=== PATIENT | male | born 1940 | race Caucasian/White ===

== ENCOUNTER 2022-12-11 07:42 | Outpatient (OUT) | payer MEDICARE, SELFPAY ==
[2022-12-11 10:40] VITALS: BP 143/91; PULSE 90; RESP 18; TEMP 36.5; O2SAT 97
[2022-12-11] MEDS: MITOMYCIN 40 MG in WATER FOR INJECTION,STERILE 20 ML 20 MG INTRAVESIC (11:00)
--- NOTE | 2022-12-11 11:00 | PC.NURSE ---
Patient is here for intravesicular mitomycin, he denies any complaints. Vitals are stable. He tolerated insertion of covarrubias well and had 100cc of yellow drainage in bag. Mitomycin was instilled at 1100, and double verified with Gilberto Read RN. He is instructed to turn every 15 minutes for 90 minutes per physician order. He is tolerating this well.
--- NOTE | 2022-12-11 12:30 | PC.NURSE ---
Patient tolerated treatment well and denies any complaints. Mitomycin was drained into covarrubias bag that was light purple in color and about 350 total cc in drainage bag. Covarrubias was discontinued and patient tolerated well. Pt was reminded of home care instructions and he was discharged home without complaints.
== END 2022-12-11 07:43 | disposition home or self-care (01) ==
LOC: INF 07:43
PROVIDERS: Visit Provider Urology
DX: Z85.51 Personal history of malignant neoplasm of bladder (principal)
CPT/HCPCS: 51700; J9280

== ENCOUNTER 2022-12-17 12:47 | Outpatient (OUT) | payer MEDICARE, SELFPAY ==
[2022-11-13 10:45] VITALS: BP 139/81; PULSE 76; RESP 18; TEMP 36.6; O2SAT 97
[2022-11-13] MEDS: MITOMYCIN 40 MG in WATER FOR INJECTION,STERILE 20 ML 20 MG INTRAVESIC (11:02)
--- NOTE | 2022-11-13 11:32 | PC.NURSE ---
1045: Patient is here for instillation of mitomycin, he previously has tolerated these well in the past. He denies concerns or complaints today. Lee was placed via sterile technique and tolerated well. Patient has Mitomycin and turning every 15 minutes per physician order and is tolerating well.
[2022-11-13 12:38] VITALS: BP 134/75; PULSE 83; RESP 18; O2SAT 96
--- NOTE | 2022-11-13 12:42 | PC.NURSE ---
Patient tolerated Mitomycin without difficulty, Lee was drained and removed, patient tolerated well. His vitals were obtained and stable, he was discharged home without any complaints.
== END 2022-12-17 12:48 | disposition home or self-care (01) ==
LOC: INF 12:47
PROVIDERS: Visit Provider Urology
DX: C67.9 Malignant neoplasm of bladder, unspecified (principal)
CPT/HCPCS: 51700; 51702; J9280

== ENCOUNTER 2023-08-04 12:27 | Outpatient (OUT) | payer MEDICARE, SELFPAY ==
--- NOTE | 2023-08-04 12:36 | ECG_ITS ---
The [facility] Test Date: 2023-08-04 Pat Name: Denny Pollock Department: Room: - Gender: Male Latin American [employer] Director: : 1940 Requested By: JONATHAN NOLASCO Order Number: [id number] Reading MD: AQUILES BERGERON Measurements Intervals [place] Rate: 71 P: 91 SD: 236 QRS: -81 QRSD: 98 T: 50 QT: 382 QTc: 416 Interpretive Statements SINUS RHYTHM WITH FIRST DEGREE AV BLOCK MARKED LEFT AXIS DEVIATION [QRS AXIS < -30] No previous ECG available for comparison Electronically Signed On 08-04-2023 22:36:07 EDT by AQUILES BERGERON
--- NOTE | 2023-08-04 12:36 | XR_ITS ---
The [address] [address] Patient Name: ANIRUDH NELSON MRN: [id number] date: 1940 Sex: M Assigned Patient Location: [facility] Current Patient Location: [facility] Accession/Order Number: [id number] Exam Date: 08/04/2023 13:39 Report Date: 08/04/2023 15:45 At the request of: JONATHAN NOLASCO Procedure: XR chest 2V EXAMINATION: XR chest 2V HISTORY: Preop exam COMPARISON: No relevant comparison available. TECHNIQUE: PA and lateral FINDINGS: LUNGS: Paucity of lung markings in the lung bases possibly representing emphysematous change. Scattered pulmonary nodules, size and density suggests granulomas VASCULATURE: No increased pulmonary vasculature. PLEURA: No pneumothorax, effusion, or pleural thickening. CARDIAC: No cardiomegaly or cardiac silhouette abnormality. MEDIASTINUM: No visible mass or adenopathy. BONES: No fracture or visible bone lesion. OTHER: Negative. XR/XR chest 2V IMPRESSION: No acute cardiopulmonary process Electronically authenticated by: TEA CHE Date: 08/04/2023 15:45
[2023-08-04 13:38] LABS: Basophils Absolute Auto 0.1 10^3/uL (0.0-0.1); Basophils Percent Auto 0.7 % (0.2-2.0); Eosinophils Absolute Auto 0.2 10^3/uL (0.0-0.7); Eosinophils Percent Auto 2.3 % (0.9-7.0); Hematocrit 41.9 % (42.0-54.0); Hemoglobin 13.8 g/dL (14.0-18.0); Immature Granulocytes Abs Auto 0.03 10^3/uL (0.00-0.03); Immature Granulocytes Pct Auto 0.4 % (0.0-0.5); Lymphocytes Absolute Auto 1.4 10^3/uL (1.2-3.8); Lymphocytes Percent Auto 18.3 % (20.5-60.0); Mean Corpuscular HGB Conc 32.9 g/dL (29.9-35.2); Mean Corpuscular Hemoglobin 32.4 pg (25.9-34.0); Mean Corpuscular Volume 98.4 fL (80.0-94.0); Monocytes Absolute Auto 0.8 10^3/uL (0.3-0.8); Monocytes Percent Auto 10.8 % (1.7-12.0); Neutrophils Absolute Auto 5.1 10^3/uL (1.4-6.5); Neutrophils Percent Auto 67.5 % (43.0-75.0); Platelet Count 233 10^3/uL (150-450); Red Blood Count 4.26 10^6/uL (4.70-6.10); Red Cell Distribution Width 15.2 % (11.0-15.0); White Blood Count 7.5 10^3/uL (4.0-11.0)
[2023-08-04 14:25] LABS: Anion Gap 12.6; BUN Creatinine Ratio 14.3; Calcium 8.8 mg/dL (8.5-10.1); Carbon Dioxide 25.7 mmol/L (21.0-32.0); Chloride 105 mmol/L (98-107); Estimated GFR (African America >60 (>=60); Estimated GFR (Non-African Ame >60 (>=60); Glucose 103 mg/dL (74-106); Potassium 4.3 mmol/L (3.5-5.1); Sodium 139 mmol/L (136-145)
[2023-08-04 14:30] LABS: Partial Thromboplastin Time 28.2 sec (22.3-36.2); Prothrombin Time 10.6 sec (9.0-11.6)
== END 2023-08-04 12:28 | disposition home or self-care (01) ==
LOC: PST 12:29
PROVIDERS: Visit Provider Urology
DX: Z01.810 Encounter for preprocedural cardiovascular examination (principal); Z01.812 Encounter for preprocedural laboratory examination; N40.1 Benign prostatic hyperplasia with lower urinary tract symptoms
CPT/HCPCS: 36415; 71046; 80048; 85025; 85610; 85730; 93005

== ENCOUNTER 2023-08-06 10:07 | Day surgery (SDC) | payer MEDICARE, SELFPAY ==
[2023-08-04 12:42] VITALS: BP 128/70; PULSE 79; RESP 16; TEMP 36.3; O2SAT 96; BMI 19.0
[2023-08-06] VITALS (11 sets, daily range): BP systolic 119–150; BP diastolic 69–88; PULSE 80–85; RESP 15–23; TEMP 36.2–36.3; O2SAT 96–100; BMI 19.0
[2023-08-06] MEDS: LACTATED RINGER'S SOLUTION 1,000 ML 50 ML IV (10:33)
[2023-08-06] MEDS: CEFAZOLIN SODIUM/DEXTROSE,ISO 1 GM/50 ML IV.SOLN IV (12:00)
--- NOTE | 2023-08-06 12:53 | PM.URSON ---
Urology Surgery Operative Note Operative Note Procedure Date: 08/06/23 Time Out Performed: yes Pre-op Diagnosis: Recurrent bladder tumors Post-op Diagnosis: same as pre-op Procedures performed: 1. Cystoscopy. 2. 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 On his last endoscopy he was found to have a 2 cm tumor on the anterior left wall. He now presents for TURBT. He has signed an informed consent for these procedures after risks were explained. Detailed description of Procedure: The patient was brought to the operating room and placed on the operating room table in the supine position. SCDs were placed on the lower extremities and turned on and functioning during the entire case. Timeout was done by all parties in the room. We all agreed upon the patient's identification and the planned procedures for this patient. Genn. anesthesia was then administered. The patient was then repositioned into the modified dorsal lithotomy position. All pressure points were satisfactorily padded. Genitalia were sterilely prepped and draped in usual fashion. I started by passing a 26 [place] Olympus resectoscope with a standard bipolar loop electrode per urethra and into the bladder. The anterior urethra was normal. Prostatic urethra showed by lobar hypertrophy. Panendoscopy in the bladder showed the 1 noted tumor on office cystoscopy on the anterior left-sided wall. There were diverticuli diffusely. No other tumors were noted. I then began to resect the tumor. I did it in a staccato fashion due to his thin-walled bladder. The entire tumor was removed and sent for permanent sections. The resection bed was fulgurated with the loop electrode. Upon completion, there was no evidence of bleeding. There were no other tumors noted in the bladder. The scope was then removed. I then placed an 18 [place] Lee in the bladder. It drained clear. The anesthetic was then reversed. He was then [facility] and wheeled to PACU in stable condition.
== END 2023-08-06 14:27 | disposition home or self-care (01) ==
PROVIDERS: Visit Provider Urology
PROC: (CPT 52234; principal; 2023-08-06 11:25)
DX: C67.3 Malignant neoplasm of anterior wall of bladder (principal); Z85.51 Personal history of malignant neoplasm of bladder; N40.1 Benign prostatic hyperplasia with lower urinary tract symptoms; J44.9 Chronic obstructive pulmonary disease, unspecified; R06.02 Shortness of breath; E78.5 Hyperlipidemia, unspecified; Z79.01 Long term (current) use of anticoagulants; I11.0 Hypertensive heart disease with heart failure; I50.9 Heart failure, unspecified; R31.29 Other microscopic hematuria; Z87.440 Personal history of urinary (tract) infections; Z87.891 Personal history of nicotine dependence; N21.0 Calculus in bladder
CPT/HCPCS: 52234; 36415; 88307; 99999; J1094; J2704